=== PATIENT | female | born 1970 | race African-American/Black ===

== ENCOUNTER 2017-08-19 12:24 | Emergency (ER) | payer OTHER ==
[~2017-08-19] VITALS: Ht 170.2 cm; Wt 62.6 kg
[~2017-08-19 12:24] MED LIST: COMPAZINE10 MG PO; IBUPROFEN 800800 M1 PO; POLY-IRON150 MG PO; PROTONIX40 M4 PO; ULTRAM50 MG PO; ZOFRAN ODT4 MG PO
[2017-08-19] MEDS ORDERED: ALDACTONE25 MG PO (12:39)
[2017-08-19 13:59] VITALS: BP 128/68
== END 2017-08-19 14:00 | disposition home or self-care (01) ==
LOC: ER 12:24
DX: H53.8 Other visual disturbances (principal); R42 Dizziness and giddiness; D25.9 Leiomyoma of uterus, unspecified; F17.210 Nicotine dependence, cigarettes, uncomplicated